=== PATIENT | female | born 1970 | race Caucasian/White ===

== ENCOUNTER → 2024-08-17 | Day surgery (SDC) | payer BC ==
[~2024-08-17] MED LIST: ALBUTEROL0.63 MG/3 INH; FENTANYL CITRATE/PF 100MCG/2 ML INJ ONE; LIDOCAINE HCL 2% LOCAL INJ 5 ML SDV VIAL INJ ONE; PHENYLEPHRINE HCL 1% 10 MG/ML VIAL ONE; PROPOFOL IV EMULSION 10 MG/ML 20 ML VIAL ONE
[2024-08-17] MEDS: LACTATED RINGER'S 1,000 ML ONE (07:38)
[2024-08-17 08:51] VITALS: TEMP 97.4
[2024-08-17 09:05] VITALS: BP 111/66; PULSE 78; RESP 18; O2SAT 100
== END | disposition home or self-care (01) ==
LOC: OR 06:23
PROVIDERS: ATTEND Internal Medicine Gastroenterology
DX: R63.4 Abnormal weight loss (principal); K29.50 Unspecified chronic gastritis without bleeding; K31.89 Other diseases of stomach and duodenum; K21.9 Gastro-esophageal reflux disease without esophagitis; J45.909 Unspecified asthma, uncomplicated; Z78.9 Other specified health status; Z88.2 Allergy status to sulfonamides; Z91.012 Allergy to eggs; Z88.0 Allergy status to penicillin; Z91.013 Allergy to seafood; Z01.810 Encounter for preprocedural cardiovascular examination; Z79.899 Other long term (current) drug therapy; Z68.1 Body mass index [BMI] 19.9 or less, adult; Z87.19 Personal history of other diseases of the digestive system
CPT/HCPCS: 43239; 88305; 93005; J2003; J2371; J2704; J3010; J7121